=== PATIENT | male | born 1965 | race Caucasian/White ===

== ENCOUNTER 2024-08-17 07:49 | Emergency (ER) | payer OTHER ==
[~2024-08-17] VITALS: Ht 185.4 cm; Wt 77.1 kg
[~2024-08-17 07:49] MED LIST: DAYPRO600 M1 PO; VICODIN 500 MG-1 TAB PO
[2024-08-17 07:59] VITALS: BP 163/67
[2024-08-17] MEDS ORDERED: NITROGLYCERIN 0.4 MG BOT SL ONE (08:10)
[2024-08-17 08:13] LABS: HEMATOCRIT 46.5 % (42.0-52.0); MEAN CELL VOLUME 81.6 fl (80.0-94.0); MEAN CORPUSCULAR HGB 27.4 pg (27.0-31.0); MEAN CORPUSCULAR HGB CONC 33.5 g/dl (33.0-37.0); MEAN PLATELET VOLUME 8.7 fl (9.6-12.3); PLATELET COUNT AUTOMATED 165 10*3/uL (130-400); RED CELL DISTRI WIDTH 14.6 % (0-14.5); WHITE BLOOD COUNT 3.5 10*3/uL (4.8-10.8)
[2024-08-17 08:17] LABS: MANUAL DIFF REFLEX YES
[2024-08-17 08:32] VITALS: BP 108/69
[2024-08-17] MEDS ORDERED: Enoxaparin Sodium 80 MG/0.8 ML SYR SC ONE (08:40)
[2024-08-17] MEDS ORDERED: NITROGLYCERIN 1 IN PACKET T ONE (08:40)
[2024-08-17 08:41] LABS: ALKALINE PHOSPHATASE 92 U/L (46-116); BUN 15 mg/dl (9-23); CHLORIDE 105 mmol/L (98-107); POTASSIUM 4.7 mmol/L (3.4-5.1); SGPT/ALT 12 U/L (5-49); TOTAL PROTEIN 7.5 gm/dL (6.0-8.0)
[2024-08-17 08:47] LABS: ATYPICAL LYMPHS 5 % (0-0); BASOPHILS 2 % (0-1); OVALOCYTES FEW; PLATELET SUFFICIENCY NORMAL (NORMAL); TOTAL CELLS COUNTED 100 #CELLS
[2024-08-17 08:48] VITALS: BP 131/82
[2024-08-17] MEDS ORDERED: ASPIRIN, CHEWABLE 81 MG TAB PO ONE (09:00)
[2024-08-17 09:27] VITALS: BP 149/78
[2024-08-17 10:52] VITALS: BP 131/85
[2024-08-17 11:50] VITALS: BP 123/67
== END 2024-08-17 11:54 | disposition short-term general hospital (02) ==
LOC: ED 07:49 → EDHOLD 09:50 → ED 09:50
PROVIDERS: Emergency Medicine
DX: I24.9 Acute ischemic heart disease, unspecified (principal); Z98.890 Other specified postprocedural states

== ENCOUNTER 2025-07-11 16:20 | Emergency (ER) | payer OTHER ==
[~2025-07-11] VITALS: Wt 81.6 kg
[2025-07-11 17:18] LABS: MEAN CELL VOLUME 81.2 fl (80.0-94.0); MEAN CORPUSCULAR HGB 27.1 pg (27.0-31.0); MEAN PLATELET VOLUME 9.1 fl (9.6-12.3); NUCLEATED RED BLOOD CELL 0.0 % (0.0-0.0); NUCLEATED RED BLOOD CELL 0.0 10*3/uL (0.0-0.0); PLATELET COUNT AUTOMATED 190 10*3/uL (130-400); RED CELL DISTRI WIDTH 15.8 % (0-14.5)
[2025-07-11 17:20] LABS: MANUAL DIFF REFLEX YES
[2025-07-11 17:30] LABS: ACT PARTIAL THROMBO TIME 36.8 SECONDS (20.0-32.1)
[2025-07-11 17:38] LABS: BASOPHILS 2 % (0-1)
[2025-07-11 17:39] LABS: PLATELET SUFFICIENCY NORMAL (NORMAL)
[2025-07-11 17:43] LABS: BUN 22 mg/dl (9-23); SGPT/ALT 11 U/L (5-49)
[2025-07-11] MEDS ORDERED: FLONASE ALLERG9.9 ML NAS (17:55)
== END 2025-07-11 18:27 | disposition home or self-care (01) ==
LOC: ED 16:20
PROVIDERS: Nurse Practitioner Family
DX: R04.0 Epistaxis (principal); I25.2 Old myocardial infarction; Z98.890 Other specified postprocedural states